=== PATIENT | female | born 1960 | race Two or more races ===

== ENCOUNTER → 2018-06-18 | Outpatient (CLI) | payer OTHER | END | disposition home or self-care (01) | LOC: RADECHMAIN 12:06 | PROVIDERS: ATTEND Family Medicine | DX: R00.0 Tachycardia, unspecified (principal); R00.1 Bradycardia, unspecified | CPT/HCPCS: 93225; 93226 ==

== ENCOUNTER → 2020-10-03 | Outpatient (CLI) | payer BC, OTHER | END | disposition home or self-care (01) | LOC: LABWHC1 12:20 | PROVIDERS: ATTEND Emergency Medicine | DX: Z20.828 Contact with and (suspected) exposure to other viral communicable diseases (principal) | CPT/HCPCS: U0003; C9803 ==

== ENCOUNTER → 2023-11-13 | Outpatient (CLI) | payer MEDICAID | END | disposition home or self-care (01) | LOC: LABWHC1 14:41 | PROVIDERS: ATTEND Family Medicine | DX: I10 Essential (primary) hypertension (principal); E11.65 Type 2 diabetes mellitus with hyperglycemia; E55.9 Vitamin D deficiency, unspecified; R10.12 Left upper quadrant pain ==

== ENCOUNTER → 2023-11-14 | Outpatient (CLI) | payer MEDICAID ==
[2023-11-14 15:40] LABS: Basophils # (A) 0.04 X 10*3/uL (0.00-0.10); Basophils % (A) 0.6 %; Eosinophils # (A) 0.21 X 10*3/uL (0.04-0.35); HGB 14.8 g/dL (12.0-15.0); Lymphocytes # (A) 2.01 X 10*3/uL (0.90-5.00); Lymphocytes % (A) 29.1 %; MCHC 32.9 g/dL (32.0-37.0); MCV 91.3 FL (80.0-97.0); Mean Platelet Volume 10.8 FL (9.5-12.2); Monocytes # (A) 0.33 X 10*3/uL (0.20-1.00); Monocytes % (A) 4.8 %; NRBC Per 100 WBC 0 X 10*3/uL (0.00-0.01); Neutrophils # (A) 4.29 X 10*3/uL (1.80-7.70); Neutrophils % (A) 62.2 %; Platelet Count 224 X 10*3/uL (140-440); RBC 4.93 X 10*6/uL (4.10-5.20); RDW 12.1 % (11.5-14.5)
[2023-11-14 16:46] LABS: ALT 16 U/L (8-44); AST 17 U/L (13-35); Albumin 4.3 g/dL (3.8-4.9); Albumin/Globulin Ratio 1.65 Ratio (1.60-3.17); Alkaline Phosphatase 86 U/L (41-126); Amylase 105 U/L (23-121); BUN/Creat Ratio 22.78 Ratio (12.00-20.00); Blood Urea Nitrogen 20.5 mg/dL (9.0-27.0); Calcium 9.7 mg/dL (8.7-10.3); Carbon Dioxide 26.9 mmol/L (21.6-31.8); Chloride 101 mmol/L (96-109); Globulin 2.6 g/dL (1.6-3.3); Glucose 246 mg/dL (70-110); Lipase 74 U/L (14-63); Potassium 4.3 mmol/L (3.5-5.5); Sodium 140 mmol/L (135-145); Total Bilirubin 0.3 mg/dL (0.3-1.2); Total Protein 6.9 g/dL (6.2-8.2)
== END | disposition home or self-care (01) ==
LOC: LABWHC1 10:16
PROVIDERS: ATTEND Family Medicine
DX: I10 Essential (primary) hypertension (principal); E11.65 Type 2 diabetes mellitus with hyperglycemia; E55.9 Vitamin D deficiency, unspecified; R10.12 Left upper quadrant pain
CPT/HCPCS: 36415; 80053; 82150; 82306; 83036; 83690; 84443; 85025

== ENCOUNTER → 2023-12-04 | Outpatient (CLI) | payer OTHER ==
--- NOTE | 2023-12-04 10:25 | US ---
EXAMINATION TYPE: US abdomen complete DATE OF EXAM: 12/04/2023 COMPARISON: Correlation CT 12/30/2022 CLINICAL INDICATION: Female, 63 years old with history of R10.12 LEFT UPPER QUADRANT PAIN; pain LUQ n o left kidney TECHNIQUE: Multiple sonographic images of the abdomen are obtained. FINDINGS: EXAM MEASUREMENTS: Liver Length: 13.8 cm Gallbladder Wall: .2 cm CBD: .5 cm Spleen: 10 cm Right Kidney: 12.1 x 5.5 x 4.4 cm Left Kidney: Surgically absent Pancreas: Tissue not well visualized due to cystic area seen measuring 12.2 x 10 x 10.6 cm Liver: wnl Gallbladder: wnl CBD: wnl Spleen: wnl Right Kidney: wnl Left Kidney: wnl Upper IVC: wnl Abd Aorta: wnl IMPRESSION: 1. Pancreas obscured by a large cyst measuring 12.2 cm. Consider contrast-enhanced CT. Possibly relat ed to a large pseudocyst. 2. Left kidney surgically absent. 3. No gallstones or biliary ductal dilatation.
== END | disposition home or self-care (01) ==
LOC: RADUSWWP 06:50
PROVIDERS: ATTEND Family Medicine
DX: K86.2 Cyst of pancreas (principal); R74.8 Abnormal levels of other serum enzymes; Z90.5 Acquired absence of kidney
CPT/HCPCS: 76700; 83690

== ENCOUNTER → 2023-12-08 | Outpatient (CLI) | payer OTHER ==
[2023-12-08 08:27] LABS: African American GFR (CKD) >90 (>60 ml/min/1.73 sqM); Blood Urea Nitrogen 21 mg/dL (7-17); Non-African American GFR(CKD) >90 (>60 ml/min/1.73 sqM)
--- NOTE | 2023-12-08 09:40 | CT ---
EXAMINATION TYPE: CT abdomen w con CT DLP: 1914 mGycm, Automated exposure control for dose reduction was used. DATE OF EXAM: 12/08/2023 9:22 AM COMPARISON: CT abdomen pelvis most recent from 12/30/2022. CLINICAL INDICATION:Female, 63 years old with history of K86.2 pancreatic cyst; pancreatic cyst TECHNIQUE: Axial CT abdomen w con;Sagittal and coronal reformats were created on a separate workstat ion. Contrast used:100 mL of Isovue 370 with IV Contrast, (none if empty) Oral contrast used: without Oral Contrast (none if empty) FINDINGS: LOWER CHEST: Elevated right diaphragm. ABDOMEN LIVER: Diffusely hypoattenuating parenchyma. GALLBLADDER AND BILE DUCTS: Unremarkable. PANCREAS: Large cystic lesion in the upper abdomen near the pancreatic tail and just under the gastri c lumen. This measures up to 12.3 x 8.8 x 12.0 cm. SPLEEN: Unremarkable. ADRENAL GLANDS: Unremarkable. KIDNEYS AND URETERS: The left kidney is atrophic and tiny with small cysts. No evidence of hydronephr osis or renal calculus. The ureters are unremarkable. PELVIS BLADDER: Unremarkable REPRODUCTIVE: Unremarkable. ABDOMEN & PELVIS STOMACH AND BOWEL: No evidence of bowel obstruction. Multiple duodenal diverticula. PERITONEUM/RETROPERITONEUM: No evidence of pneumoperitoneum or free fluid. VASCULATURE: No evidence of aortic aneurysm. MUSCULOSKELETAL: No acute osseous abnormalities LYMPH NODES: No gross evidence for lymphadenopathy. SOFT TISSUE/ABDOMINAL WALL: Unremarkable IMPRESSION: 1. Large upper abdominal cystic lesion given prior evidence of pancreatitis this is favored represen t pancreatitis pseudocyst. No acute abdominal process. 2. Atrophic left kidney 3. Hepatic steatosis.
== END | disposition home or self-care (01) ==
LOC: RADCTMAIN 07:33
PROVIDERS: ATTEND Family Medicine
DX: K76.0 Fatty (change of) liver, not elsewhere classified (principal); N26.1 Atrophy of kidney (terminal); K86.2 Cyst of pancreas
CPT/HCPCS: 82565; 84520; 74160; 36415; Q9967

== ENCOUNTER → 2024-01-15 | Outpatient (CLI) | payer OTHER ==
[2024-01-15 15:25] LABS: BUN/Creat Ratio 18.78 Ratio (12.00-20.00); Blood Urea Nitrogen 16.9 mg/dL (9.0-27.0); Glucose 148 mg/dL (70-110)
[2024-01-15 15:26] LABS: Calcium 9.5 mg/dL (8.7-10.3); Carbon Dioxide 27.8 mmol/L (21.6-31.8); Chloride 104 mmol/L (96-109); Potassium 4.2 mmol/L (3.5-5.5); Sodium 142 mmol/L (135-145)
[2024-01-15 15:40] LABS: HCT 43.4 % (37.2-46.3); MCH 28.8 pg (27.0-32.0); MCHC 32.3 g/dL (32.0-37.0); MCV 89.3 FL (80.0-97.0); Mean Platelet Volume 10.3 FL (9.5-12.2); NRBC Per 100 WBC 0 X 10*3/uL (0.00-0.01); Platelet Count 240 X 10*3/uL (140-440); RBC 4.86 X 10*6/uL (4.10-5.20); RDW 12.2 % (11.5-14.5); WBC 6.57 X 10*3/uL (4.50-10.00)
== END | disposition home or self-care (01) ==
LOC: LABWHC1 12:20
PROVIDERS: ATTEND Surgery
DX: Z01.812 Encounter for preprocedural laboratory examination (principal)
CPT/HCPCS: 36415; 80048; 83036; 85027

== ENCOUNTER 2024-07-15 19:59 | Emergency (ER) | payer OTHER ==
[2024-07-15 21:25] LABS: Basophils % (A) 0 %; Eosinophils % (A) 0 %; HCT 40.7 % (34.0-46.0); HGB 13.7 gm/dL (11.4-16.0); Lymphocytes # (A) 1.7 k/uL (1.0-4.8); Lymphocytes % (A) 15 %; MCHC 33.5 g/dL (31.0-37.0); MCV 89.5 fL (80.0-100.0); Mean Platelet Volume 7.8; Monocytes # (A) 0.6 k/uL (0-1.0); Monocytes % (A) 5 %; Neutrophils % (A) 79 %; Platelet Count 308 k/uL (150-450); RBC 4.55 m/uL (3.80-5.40); RDW 12.7 % (11.5-15.5); WBC 11.5 k/uL (3.8-10.6)
--- NOTE | 2024-07-15 21:25 | ED ---
Chest Pain HPI - General Source: patient, RN notes reviewed Mode of arrival: wheelchair Limitations: no limitations <Estelle Siddiqui - Last Filed: 07/15/24 22:14> <Poli Kapoor - Last Filed: 07/16/24 00:25> - General Chief Complaint: Chest Pain Stated Complaint: chest pain, facial drooping Time Seen by Provider: 07/15/24 21:20 - History of Present Illness Initial Comments: 64-year-old female with history of diabetes and hypertension presenting to the ER with chief complaint of epigastric pain x 3 days. States over the past 3 days she has been having intermittent dull epigastric pain radiating to left chest radiating to the back. Admits to decreased appetite and nausea/vomiting. States when symptoms began she was sitting down in a chair. Over the last day, states pain has become constant. Denies exertional symptoms. Denies shortness of breath. States she recently had a cholecystectomy in March and is concerned for pancreatitis as she has had this before. Denies blood thinners. Denies history of cardiac issues. (Estelle Siddiqui) - Related Data Home Medications Medication Instructions Recorded Confirmed amLODIPine [Norvasc] 5 mg PO HS 12/30/22 12/30/22 lisinopriL [Zestril] 5 mg PO DAILY 12/30/22 12/30/22 Allergies Allergy/AdvReac Type Severity Reaction Status Date / Time morphine Allergy Rash/Hives Verified 07/15/24 20:04 Review of Systems ROS Other: All systems not noted in ROS Statement are negative. <Estelle Siddiqui - Last Filed: 07/15/24 22:14> ROS Other: All systems not noted in ROS Statement are negative. <Poli Kapoor - Last Filed: 07/16/24 00:25> ROS Statement: Those systems with pertinent positive or pertinent negative responses have been documented in the HPI. EKG Findings - EKG Results: EKG: interpreted by ERMD (EKG reveals sinus tachycardia with no ST changes. Ventricular rate 113 bpm, DE interval 134, QRS duration 98, QT/QTc 312/379) <Estelle Siddiqui - Last Filed: 07/15/24 22:14> Past Medical History Past Medical History: Diabetes Mellitus, Hypertension Additional Past Medical History / Comment(s): Patient states "she only has 1 kidney" History of Any Multi-Drug Resistant Organisms: None Reported Past Surgical History: Cholecystectomy Past Psychological History: No Psychological Hx Reported Smoking Status: Never smoker Past Alcohol Use History: None Reported Past Drug Use History: None Reported <Estelle Siddiqui - Last Filed: 07/15/24 22:14> General Exam Limitations: no limitations General appearance: alert, in no apparent distress Head exam: Present: atraumatic, normocephalic, normal inspection Respiratory exam: Present: normal lung sounds bilaterally. Absent: respiratory distress, wheezes, rales, rhonchi, stridor, chest wall tenderness Cardiovascular Exam: Present: regular rate, normal rhythm, normal heart sounds. Absent: systolic murmur, diastolic murmur, rubs, gallop, clicks GI/Abdominal exam: Present: soft, tenderness (mild epigastric tenderness), normal bowel sounds. Absent: distended, guarding, rebound, rigid Neurological exam: Present: alert, oriented X3, other (Left-sided facial droop, patient states this has been ongoing since she was 19 years old) Psychiatric exam: Present: normal affect, normal mood Skin exam: Present: warm, dry, intact, normal color. Absent: rash <Estelle Siddiqui - Last Filed: 07/15/24 22:14> Course <Poli Kapoor - Last Filed: 07/16/24 00:25> Vital Signs 07/15/24 07/15/24 07/15/24 20:02 21:45 22:30 Temperature 97.9 F Pulse Rate 121 H 105 H 105 H Respiratory 18 16 16 Rate Blood Pressure 103/68 145/106 154/89 O2 Sat by Pulse 97 95 95 Oximetry - Reevaluation(s) Reevaluation #1: 07/16/24 00:24 I was asked to enter consults, pain medication, placement as Dr. Villarreal Had signed out of his computer. (Poli Kapoor) Chest Pain MDM <Estelle Siddiqui - Last Filed: 07/15/24 22:14> - MDM Was pt. sent in by a medical professional or institution (, [facility], DATA INTEGRATION ARCHITECT, urgent care, hospital, or senior care...) When possible be specific @ -No Did you speak to anyone other than the patient for history (EMS, parent, family, police, friend...)? What history was obtained from this source @ -No Did you review nursing and triage notes (agree or disagree)? Why? @ -I reviewed and agree with nursing and triage notes Were old charts reviewed (outside hosp., previous admission, EMS record, old EKG, old radiological studies, urgent care reports/EKG's, senior care records)? Report findings @ -No old charts were reviewed Differential Diagnosis (chest pain, altered mental status, abdominal pain women, abdominal pain men, vaginal bleeding, weakness, fever, dyspnea, syncope, headache, dizziness, GI bleed, back pain, seizure, CVA, palpatations, mental health, musculoskeletal)? @ -Differential Abdominal Pain Women: Appendicitis, Cholecystitis, diverticulosis, ischemic bowel, pancreatitis, hepatitis, UTI, gastroenteritis, AAA, incarcerated hernia, bowel obstruction, constipation, inflammatory bowel, hepatitis, peptic ulcer disease, splenic infarction, perforated viscus, vulvitis, ovarian torsion, PID, kidney stone, placenta abruption, this is not meant to be an all-inclusive list EKG interpreted by me (3pts min.). @ -As above X-rays interpreted by me (1pt min.). @ -X-ray reveals no acute process CT interpreted by me (1pt min.). @ -CT abdomen pelvis pending upon admission U/S interpreted by me (1pt. min.). @ -None done What testing was considered but not performed or refused? (CT, X-rays, U/S, labs)? Why? @ -None What meds were considered but not given or refused? Why? @ -None Did you discuss the management of the patient with other professionals (professionals i.e. , PA, DATA INTEGRATION ARCHITECT, lab, RT, psych nurse, social worker assistant, criminal justice lawyer, teacher, network security officer, nurse case management)? Give summary @ -I spoke with Dr. Singleton who accepts admission at this time for acute pancreatitis Was smoking cessation discussed for >3mins.? @ -No Was critical care preformed (if so, how long)? @ -No Were there social determinants of health that impacted care today? How? (Homelessness, low income, unemployed, alcoholism, drug addiction, transportation, low edu. Level, literacy, decrease access to med. care, retirement, rehab)? @ -No Was there de-escalation of care discussed even if they declined (Discuss DNR or withdrawal of care, Hospice)? DNR status @ -No What co-morbidities impacted this encounter? (DM, HTN, Smoking, COPD, CAD, Cancer, CVA, ARF, Chemo, Hep., AIDS, mental health diagnosis, sleep apnea, morbid obesity)? @ -None Was patient admitted / discharged? Hospital course, mention meds given and route, prescriptions, significant lab abnormalities, going to OR and other pertinent info. @ -Admitted. This is a 64-year-old female with a history of pancreatitis, diabetes, hypertension presenting to the ER with chief complaint of epigastric pain x 3 days with nausea and vomiting. Vital signs are remarkable for tachycardia, otherwise unremarkable. EKG reveals sinus tachycardia with no ST changes. Physical examination remarkable for mild epigastric tenderness to palpation. Patient is provided with IV fluids and antiemetics. Lab work including CBC, CMP, coags, troponin remarkable for glucose 216. Lipase is 1698. Chest x-ray reveals limited examination due to elevated hemidiaphragm, however no definitive acute process. Discussed diagnosis of acute pancreatitis with patient. I spoke with Dr. Singleton who accepts admission at this time for acute pancreatitis. CT abdomen pelvis with contrast ordered pending admission. Case was discussed with my ED attending Dr. Villarreal. Undiagnosed new problem with uncertain prognosis? @ -No Drug Therapy requiring intensive monitoring for toxicity (Heparin, Nitro, Insulin, Cardizem)? @ -No Were any procedures done? @ -No Diagnosis/symptom? @ -Acute pancreatitis Acute, or Chronic, or Acute on Chronic? @ -Acute Uncomplicated (without systemic symptoms) or Complicated (systemic symptoms)? @ -Complicated Side effects of treatment? @ -No Exacerbation, Progression, or Severe Exacerbation? @ -No Poses a threat to life or bodily function? How? (Chest pain, [place], [place], pneumonia, PE, COPD, DKA, ARF, appy, cholecystitis, CVA, Diverticulitis, Homicidal, Suicidal, threat to staff... and all critical care pts) @ -Possibly (Estelle Siddiqui) Disposition Time of Disposition: 22:22 <Estelle Siddiqui - Last Filed: 07/15/24 22:14> <Poli Kapoor - Last Filed: 07/16/24 00:25> Clinical Impression: Acute pancreatitis Disposition: ADMITTED IP TO THIS HOSP
[2024-07-15 21:26] LABS: ALT 19 U/L (4-34); AST 23 U/L (14-36); African American GFR (CKD) >90 (>60 ml/min/1.73 sqM); Albumin 3.8 g/dL (3.5-5.0); Alkaline Phosphatase 67 U/L (38-126); Anion Gap 9 mmol/L; Blood Urea Nitrogen 20 mg/dL (7-17); Calcium 9.3 mg/dL (8.4-10.2); Carbon Dioxide 22 mmol/L (22-30); Chloride 106 mmol/L (98-107); Glucose 216 mg/dL (74-99); Lipase 1698 U/L (23-300); Non-African American GFR(CKD) >90 (>60 ml/min/1.73 sqM); Potassium 4.7 mmol/L (3.5-5.1); Sodium 137 mmol/L (137-145); Total Bilirubin 0.7 mg/dL (0.2-1.3); Total Protein 6.5 g/dL (6.3-8.2)
[2024-07-15] MEDS: ASPIRIN 81 MG PO STA (21:26)
[2024-07-15 21:37] LABS: Prothrombin Time 10.7 sec (10.0-12.5)
--- NOTE | 2024-07-15 21:46 | XR ---
EXAMINATION: XR chest 2V: 07/15/2024 9:41 PM CLINICAL INDICATION: chest pain TECHNIQUE: Departmental protocol COMPARISON: 09/12/2016 FINDINGS / IMPRESSION: Right hemidiaphragm is elevated up to the level of the hilum and the left hemidiaphragm is also eleva kaila though not as high. This limits evaluation of the bilateral lower lung zones, particularly on the right. There is no definite acute pulmonary process. Pleural spaces are negative. Cardiopulmonary silhouette is not enlarged. Skeletal structures and soft tissues are negative for acute findings. [facility], , 07/15/2024 9:44 PM
[2024-07-15] MEDS: SODIUM CHLORIDE 0.9% 1,000 ML IV STA ×2 (21:49→23:17)
[2024-07-15] MEDS: ONDANSETRON 4 MG/2 ML VIAL IVP STA (21:50)
[2024-07-15 21:54] LABS: Partial Thromboplastin Time 21.2 sec (22.0-30.0)
[2024-07-15] MEDS ORDERED: ONDANSETRON 4 MG/2 ML VIAL IVP PRN (22:23)
[2024-07-15] MEDS ORDERED: NALOXONE 0.4 MG/ML 1 ML VIAL IV PRN (22:23)
[2024-07-15 22:57] VITALS: RESP 16
[2024-07-15] MEDS: KETOROLAC 15 MG/ML 1 ML VIAL IVP PRN (23:16)
[2024-07-16] MEDS: HYDROmorphone 0.5 MG/0.5 ML SYRINGE IVP STA ×2 (00:06→02:03)
--- NOTE | 2024-07-16 00:06 | CT ---
EXAM: CT Abdomen and Pelvis With Intravenous Contrast CLINICAL HISTORY: ITS.REASON CT Reason: epigastric pain, acute pancreatitis TECHNIQUE: Axial computed tomography images of the abdomen and pelvis with intravenous contrast. CTDI is 35.6 mGy and DLP is 1992.1 mGy-cm. This CT exam was performed using one or more of the following dose reduction techniques: automated exposure control, adjustment of the mA and/or kV according to patient size, and/or use of iterative reconstruction technique. COMPARISON: CT abdomen pelvis and 1923. FINDINGS: Lung bases: Unremarkable. No mass. No consolidation. ABDOMEN: Liver: Unremarkable. No mass. Gallbladder and bile ducts: Unremarkable. No calcified stones. No ductal dilation. Pancreas: Redemonstration of large cystic lesion in the LEFT abdomen, which now demonstrates blood products throughout as well as surrounding fluid. Findings are concerning for a large pancreatic pseudocyst which has now bled and is acutely inflamed. Evaluation for active bleed is limited. Surgical evaluation recommended. Spleen: Unremarkable. No splenomegaly. Adrenals: Unremarkable. No mass. Kidneys and ureters: Unremarkable. No solid mass. No hydronephrosis. Stomach and bowel: Unremarkable. No obstruction. No mucosal thickening. PELVIS: Appendix: No findings to suggest acute appendicitis. Bladder: Unremarkable. No mass. Reproductive: Unremarkable as visualized. ABDOMEN and PELVIS: Intraperitoneal space: Unremarkable. No free air. No significant fluid collection. Bones/joints: No acute fracture. No dislocation. Soft tissues: Unremarkable. Vasculature: Unremarkable. No abdominal aortic aneurysm. Lymph nodes: Unremarkable. No enlarged lymph nodes. IMPRESSION: Redemonstration of large cystic lesion in the LEFT abdomen, which now demonstrates blood products throughout as well as surrounding fluid. Findings are concerning for a large pancreatic pseudocyst which has now bled and is acutely inflamed. Evaluation for active bleed is limited. Surgical evaluation recommended.
[2024-07-16] MEDS: SODIUM CHLORIDE 0.9% 1,000 ML IV SCH (00:08)
[2024-07-16 02:07] VITALS: BP 126/72; PULSE 94
[2024-07-16 02:08] VITALS: TEMP 98.1
== END 2024-07-16 02:09 | disposition other institution (70) ==
LOC: EC 19:59 → UNDOADMOB 23:48 → 5NMEDONC 23:48 → 3SCARD 07-16 00:29 → 5NMEDONC 07-16 00:29 → EC 07-16 02:09
CPT/HCPCS: 36415; 71046; 74177; 80053; 83605; 83690; 84484; 85025; 85610; 85730; 93005; 96361; 96374; 96375; 96376; 99285

== ENCOUNTER → 2024-10-22 | Outpatient (CLI) | payer OTHER ==
[2024-10-22 14:35] LABS: African American GFR (CKD) 88 (>60 ml/min/1.73 sqM); Blood Urea Nitrogen 21 mg/dL (7-17); Non-African American GFR(CKD) 76 (>60 ml/min/1.73 sqM)
--- NOTE | 2024-10-23 15:37 | CT ---
EXAMINATION TYPE: CT pancreas biphase DATE OF EXAM: 10/22/2024 3:47 PM COMPARISON: CT abdomen pelvis most recent from 07/15/2024, 12/08/2023, 12/30/2022. CLINICAL INDICATION: Female, 64 years old with history of K86.3 PANCREATIC PSEUDOCYST; pancreatitis TECHNIQUE: Axial CT pancreas biphase;Sagittal and coronal reformats were created on a separate works tation. Contrast used:100 mL of Isovue 370 with IV Contrast, (none if empty) Oral contrast used: (none if empty) CT DLP: 1573 mGycm, Automated exposure control for dose reduction was used. FINDINGS: LOWER CHEST: Scarring atelectasis changes in the right lung base. ABDOMEN LIVER: Diffusely hypoattenuating parenchyma. GALLBLADDER AND BILE DUCTS: The gallbladder is surgically absent. PANCREAS: Abnormal appearance of the pancreatic morphology with suspected sequela prior pancreatitis with soft tissue extending towards the gastric lumen series 3 image 34. Recently on 12/30/2022 there i s inflammation around the pancreas. Multiple duodenal diverticulum are present. Pseudocyst seen on pr iors longer visualized. No organizing fluid collections. No masses definitively visualized. SPLEEN: U nremarkable. ADRENAL GLANDS: Unremarkable. KIDNEYS AND URETERS: No evidence of hydronephrosis or renal calculus. The ureters are unremarkable. Atrophic left kidney with hypertrophy of the right kidney. Diffuse left renal cysts. STOMACH AND BOWEL: No evidence of bowel obstruction. The appendix is normal. PERITONEUM/RETROPERITONEUM: No evidence of pneumoperitoneum or free fluid. VASCULATURE: No evidence of aortic aneurysm. MUSCULOSKELETAL: No acute osseous abnormalities LYMPH NODES: No gross evidence for lymphadenopathy. SOFT TISSUE/ABDOMINAL WALL: Fat-containing umbilical hernia. IMPRESSION: 1. Suspected sequela of pancreatitis with no pseudocysts remaining. There is suspected scar tissue e xtending towards the gastric greater curvature. No masses visualized. 2. Moderate hepatic steatosis. 3. Cholecystectomy changes. 4. Severely atrophic left kidney with hypertrophy of the right kidney. [facility], , 10/23/2024 3:35 PM
== END | disposition home or self-care (01) ==
LOC: RADCTMAIN 13:42
PROVIDERS: ATTEND Internal Medicine
DX: K86.3 Pseudocyst of pancreas (principal); K85.90 Acute pancreatitis without necrosis or infection, unspecified; K76.0 Fatty (change of) liver, not elsewhere classified; N26.1 Atrophy of kidney (terminal); Z90.49 Acquired absence of other specified parts of digestive tract; K42.9 Umbilical hernia without obstruction or gangrene
CPT/HCPCS: 82565; 84520; 36415; 74160; Q9967

== ENCOUNTER → 2025-02-17 | Outpatient (CLI) | payer MEDICARE, OTHER | END | disposition home or self-care (01) | LOC: LABWHC1 14:14 | PROVIDERS: ATTEND Family Medicine | DX: E11.65 Type 2 diabetes mellitus with hyperglycemia (principal) | CPT/HCPCS: 36415; 83036 ==